=== PATIENT | male | born 1950 | race Caucasian/White ===

== ENCOUNTER 2018-10-24 09:53 | Emergency (ER) | payer MEDICARE ==
[2018-10-24 10:15] VITALS: BP 144/96
[2018-10-24 11:13] LABS: INR 1.6 (0.8-1.2); PT - PROTHROMBIN TIME 18.2 secs (9.9-12.6)
--- NOTE | 2018-10-24 11:35 | ED Physician Documentation ---
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 his 2st PMD appt with Dr Elizalde is 12/29/18 he come to ED for INR check no CP SOA or ext swelling Review of Systems Constitutional: denies: Fever Cardiac: denies: Chest pain / pressure Respiratory: denies: Dyspnea Musculoskeletal: denies: Extremity swelling Endocrine: reports: Easy bruising / bleeding PD PAST MEDICAL HISTORY - Past Medical History Past Medical History: Yes Cardiovascular: High cholesterol, Deep vein thrombosis, Pulmonary embolism Respiratory: None Neuro: TIA Endocrine/Autoimmune: None GI: GERD : None HEENT: Chronic vision loss Psych: None Musculoskeletal: None Derm: None - Past Surgical History Past Surgical History: Yes Ortho: Spine surgery - Present Medications Home Medications: Ambulatory Orders Medication Instructions Recorded Confirmed Aspirin 1 tab ORAL DAILY 10/24/18 10/24/18 Atorvastatin Calcium 1 tab ORAL DAILY 10/24/18 10/24/18 Calcium Carbonate [Calcium] 1 tab ORAL DAILY 10/24/18 10/24/18 Ferrous Sulfate 1 tab ORAL 10/24/18 Pantoprazole [Protonix] 1 tab ORAL DAILY 10/24/18 10/24/18 Warfarin Sodium [Coumadin] 6 mg ORAL DAILY 10/24/18 10/24/18 - Allergies Allergies/Adverse Reactions: Allergies Allergy/AdvReac Type Severity Reaction Status Date / Time No Known Drug Allergies Allergy Verified 10/24/18 10:15 - Social History Does the pt smoke?: Yes Smoking Status: Current every day smoker Does the pt drink ETOH?: Yes ETOH Use: Wine, Beer, Liquor Does the pt have substance abuse?: No - Immunizations Immunizations are current?: Yes - POLST Patient has POLST: No PD ED PE NORMAL - Vitals Vital signs reviewed: Yes - Cardiac Cardiac: RRR - Respiratory Respiratory: No respiratory distress Results - Vitals Vitals: Vital Signs - 24 hr 10/24/18 10:13 Temperature 36.4 C L Heart Rate 75 Respiratory 20 Rate Blood Pressure 144/96 H O2 Saturation 99 Oxygen O2 Source Room air - Labs Labs: Laboratory Tests 10/24/18 11:03 PT 18.2 H INR 1.6 H Departure - Departure Disposition: Home, Self Care Clinical Impression: Anticoagulation monitoring, INR range 2.5-3.5 Condition: Good Instructions: Coumadin Follow-Up: Roger Elizalde MD [Provider Admit Priv/Credential] - Comments: Your INR is a bit low today at 1.6. Coumadin is notoriously difficult to keep in the therapeutic range. It is easily affected by diet. We gave you an extra 2.5 mg today in the ER. Continue your usual dosage Get your INR rechecked again in another week Return if your develop signs of blood clots again
[2018-10-24] MEDS ORDERED: WARFARIN 5 MG TABLET PO STA (11:37)
[2018-10-24] MEDS ORDERED: WARFARIN 2.5 MG TABLET PO ONE (13:00)
== END 2018-10-24 12:14 | disposition home or self-care (01) ==
LOC: ED 09:53
DX: Z51.81 Encounter for therapeutic drug level monitoring (principal); Z86.718 Personal history of other venous thrombosis and embolism; Z79.01 Long term (current) use of anticoagulants; Z86.711 Personal history of pulmonary embolism; Z79.82 Long term (current) use of aspirin; F17.200 Nicotine dependence, unspecified, uncomplicated; E78.00 Pure hypercholesterolemia, unspecified; Z86.73 Personal history of transient ischemic attack (TIA), and cerebral infarction without residual deficits
CPT/HCPCS: 36415; 85610; 99282; 99283

== ENCOUNTER 2018-12-29 09:37 | Outpatient (CLI) | payer MEDICARE | END 2018-12-29 09:38 | disposition home or self-care (01) | LOC: LAB.F 09:37 | PROVIDERS: ATTEND Family Medicine | DX: I48.0 Paroxysmal atrial fibrillation (principal) | CPT/HCPCS: 85610 ==

== ENCOUNTER 2020-04-21 07:07 | Outpatient (CLI) | payer MEDICARE | END 2020-04-21 07:08 | disposition home or self-care (01) | LOC: LAB 07:07 | PROVIDERS: ATTEND Family Medicine | DX: I48.0 Paroxysmal atrial fibrillation (principal) | CPT/HCPCS: 85610 ==

== ENCOUNTER 2020-05-02 08:00 | Outpatient (CLI) | payer MEDICARE | END 2020-05-02 23:59 | disposition home or self-care (01) | LOC: LAB 08:00 | PROVIDERS: ATTEND Family Medicine | DX: I48.0 Paroxysmal atrial fibrillation (principal) | CPT/HCPCS: 85610 ==

== ENCOUNTER 2020-05-22 10:24 | Outpatient (CLI) | payer MEDICARE | END 2020-05-22 10:25 | disposition home or self-care (01) | LOC: LAB 10:24 | PROVIDERS: ATTEND Physician Assistant | DX: I48.0 Paroxysmal atrial fibrillation (principal) | CPT/HCPCS: 85610 ==

== ENCOUNTER 2020-05-22 10:38 | Outpatient (CLI) | payer MEDICARE ==
--- NOTE | 2020-05-22 11:00 | XRAY Report ---
PROCEDURE: Chest 2 View X-Ray INDICATIONS: Dyspnea TECHNIQUE: 2 view(s) of the chest. COMPARISON: None. FINDINGS: Surgical changes and devices: None. Lungs and pleura: No pleural effusions or pneumothorax. The lungs are hyperexpanded with flattened h emidiaphragms and increased volume of the retrosternal airspace. There is no focal consolidation. No plain radiographic evidence of lung mass. Mediastinum: Mediastinal contours are normal. Heart size is normal. Bones and chest wall: Age indeterminate height loss and wedging of the T9 vertebral body. Remaining v ertebral body heights maintained. IMPRESSION: 1.No acute cardiopulmonary process demonstrated. 2. Age-indeterminate wedging of the T9 vertebral body. Correlation for any point tenderness and jose david rison with any prior outside studies is recommended, to help exclude an acute component. Reviewed by: Otto Riggins MD on 05/22/2020 10:58 AM PDT Approved by: Otto Riggins MD on 05/22/2020 10:58 AM PDT Station ID: [id number]
== END 2020-05-22 10:39 | disposition home or self-care (01) ==
LOC: DI 10:38
PROVIDERS: ATTEND Nurse Practitioner Family
DX: M48.54XA Collapsed vertebra, not elsewhere classified, thoracic region, initial encounter for fracture (principal); I48.0 Paroxysmal atrial fibrillation
CPT/HCPCS: 71046; 85610

== ENCOUNTER 2020-11-07 12:19 | Outpatient (CLI) | payer MEDICARE ==
--- NOTE | 2020-11-07 16:25 | CT Report ---
PROCEDURE: Low Dose Lung Cancer Screen INDICATIONS: SCREENING FOR MALIGNANT NEOPLASM OF LUNG TECHNIQUE: Noncontrast low-dose 5 mm thick sections acquired from the pulmonary apices to the posterior costophr enic angles. 7 mm thick coronal and sagittal MIP reformats were then acquired. For radiation dose r eduction, the following was used: automated exposure control, adjustment of mA and/or kV according t o patient size. COMPARISON: None. FINDINGS: Image quality: Excellent. Lungs and pleura: There is no suspicious pulmonary nodule or mass. Moderate apical predominant emphy sematous changes, mostly paraseptal but also centrilobular. No focal consolidation. No significant pl eural abnormality. Mediastinum: Heart size is normal. No pericardial effusion. No mediastinal adenopathy by size crit eria. Thoracic aorta and central pulmonary arteries are normal in size. Esophagus is normal in jacob luis. Moderate size hiatal hernia. Bones and chest wall: No suspicious bony lesions. No vertebral body compression fractures. No axil marya or supraclavicular adenopathy by size criteria. Thyroid unremarkable. Abdomen: Visualized upper abdomen solid organs and bowel loops appear normal in the absence of contr ast. IMPRESSION: No suspicious pulmonary nodule or mass. Lung-RADS Category: 1 Recommendation: Continued annual low-dose screening CT of the chest is recommended. Other findings: Moderate--sized hiatal hernia. Reviewed by: Otto Riggins MD on 11/07/2020 4:24 PM PST Approved by: Otto Riggins MD on 11/07/2020 4:24 PM PST Station ID: [id number]
== END 2020-11-07 12:20 | disposition home or self-care (01) ==
LOC: DI 12:19
PROVIDERS: ATTEND Family Medicine
DX: Z12.2 Encounter for screening for malignant neoplasm of respiratory organs (principal); Z87.891 Personal history of nicotine dependence
CPT/HCPCS: G0297 ×2

== ENCOUNTER 2020-11-16 16:20 | Outpatient (CLI) | payer MEDICARE | END 2020-11-16 16:21 | disposition home or self-care (01) | LOC: LAB 16:20 | PROVIDERS: ATTEND Family Medicine | DX: I48.0 Paroxysmal atrial fibrillation (principal) | CPT/HCPCS: 36415; 85610; 85730 ==

== ENCOUNTER 2021-09-25 09:22 | Outpatient (CLI) | payer MEDICARE | END 2021-09-25 09:23 | disposition home or self-care (01) | LOC: LAB 09:22 | PROVIDERS: ATTEND Family Medicine | DX: I48.0 Paroxysmal atrial fibrillation (principal) | CPT/HCPCS: 36416; 85610 ==

== ENCOUNTER 2022-05-16 09:20 | Outpatient (CLI) | payer OTHER ==
--- NOTE | 2022-05-16 16:09 | CT Report ---
PROCEDURE: Low Dose Lung Cancer Screen INDICATIONS: SMOKER TECHNIQUE: Noncontrast low-dose images were acquired from the pulmonary apices to the posterior costophrenic ang les. Multiplanar MIP reformats were then acquired. For radiation dose reduction, the following was used: automated exposure control, adjustment of mA and/or kV according to patient size. COMPARISON: CT chest 11/07/2020 FINDINGS: Image quality: Excellent. Lungs and pleura: No effusions, consolidations or nodules. Mild emphysematous changes with pulmonary blebs are noted. Mediastinum: Heart size is normal. No pericardial effusion. No mediastinal adenopathy by size crit eria. Thoracic aorta and central pulmonary arteries are normal in size. Esophagus is normal in jacob luis. Prominent hiatal hernia. Bones and chest wall: No suspicious bony lesions. No vertebral body compression fractures. No axil marya or supraclavicular adenopathy by size criteria. The thyroid is normal in size and there are no incidental findings. Abdomen: Visualized upper abdomen solid organs and bowel loops appear normal in the absence of contr ast. IMPRESSION: No visualized nodules, consolidations or effusions. RADS category 1. Recommend annual CT screening. CLINICAL RECOMMENDATION STATEMENTS: In patients <35 years with an ITN detected on CT, MRI, or extrathyroidal ultrasound, the Committee re commends further evaluation with dedicated thyroid ultrasound if the nodule is "e1 cm and has no susp icious imaging features, and if the patient has normal life expectancy. In patients "e35 years with an ITN detected on CT, MRI, or extrathyroidal ultrasound, the Committee r ecommends further evaluation with dedicated thyroid ultrasound if the nodule is "e1.5 cm and has no s uspicious imaging features, and if the patient has normal life expectancy. (ACR, 2014) Reviewed by: Samantha Brantley MD on 05/16/2022 4:07 PM PDT Approved by: Samantha Brantley MD on 05/16/2022 4:07 PM PDT Station ID: [id number]
== END 2022-05-16 09:21 | disposition home or self-care (01) ==
LOC: DI 09:20
PROVIDERS: ATTEND Physician Assistant
DX: Z12.2 Encounter for screening for malignant neoplasm of respiratory organs (principal); F17.210 Nicotine dependence, cigarettes, uncomplicated

== ENCOUNTER 2022-08-28 19:29 | Outpatient (CLI) | payer OTHER | END 2022-08-28 19:30 | disposition critical access hospital (66) | LOC: EMS 19:29 | DX: R07.9 Chest pain, unspecified (principal); R10.84 Generalized abdominal pain | CPT/HCPCS: A0425; A0429 ==

== ENCOUNTER 2022-08-28 19:54 | Emergency (ER) | payer OTHER ==
[2022-08-28] MEDS ORDERED: MORPHINE 2 MG/ML CARPUJECT IVP STA (20:32)
--- NOTE | 2022-08-28 20:37 | ED Physician Documentation ---
History of Present Illness - Stated complaint Stated Complaint: ABD PX - Chief complaint Chief Complaint: Abd Pain - History obtained from History obtained from: Patient, EMS - Additonal information Additional information: -year-old male with medical history of high blood pressure, hyperlipidemia, DVT and PE on Coumadin, TIA, daily smoker (quit 1 month ago) primary care provider Dr. Chapman at [facility], presents with sudden onset tightening in the epigastrium and left side of the chest starting 1 hour prior to arrival after eating 3 chili dogs, worse with lying flat, associated with belching and nausea but no vomiting. Patient states he has mild shortness of breath. Per patient report he had a nuclear stress test about 5 years ago and he believes he also had a CCTA that was normal, done in [place]. Denies dizziness, new leg swelling. does state he works a physical job at [employer] 6 days a week. Review of Systems Ten Systems: 10 systems reviewed and negative Constitutional: denies: Fever, Chills Cardiac: reports: Chest pain / pressure. denies: Palpitations Respiratory: reports: Dyspnea. denies: Cough GI: reports: Abdominal Pain, Nausea. denies: Vomiting : denies: Dysuria PD PAST MEDICAL HISTORY - Past Medical History Past Medical History: Yes Cardiovascular: High cholesterol, Deep vein thrombosis, Pulmonary embolism Respiratory: None Neuro: TIA Endocrine/Autoimmune: None GI: GERD : None HEENT: Chronic vision loss Psych: None Musculoskeletal: None Derm: None - Past Surgical History Past Surgical History: Yes Ortho: Spine surgery - Present Medications Home Medications: Ambulatory Orders Medication Instructions Recorded Confirmed Aspirin 1 tab ORAL DAILY 10/24/18 10/24/18 Atorvastatin Calcium 1 tab ORAL DAILY 10/24/18 10/24/18 Calcium Carbonate [Calcium] 1 tab ORAL DAILY 10/24/18 10/24/18 Ferrous Sulfate 1 tab ORAL 10/24/18 Pantoprazole [Protonix] 1 tab ORAL DAILY 10/24/18 10/24/18 Warfarin Sodium [Coumadin] 6 mg ORAL DAILY 10/24/18 10/24/18 - Allergies Allergies/Adverse Reactions: Allergies Allergy/AdvReac Type Severity Reaction Status Date / Time No Known Drug Allergies Allergy Verified 10/24/18 10:15 - Social History Does the pt smoke?: Yes Smoking Status: Current every day smoker Does the pt drink ETOH?: Yes Does the pt have substance abuse?: No - Immunizations Immunizations are current?: Yes - POLST Patient has POLST: No PD ED PE NORMAL - Vitals Vital signs reviewed: Yes - General General: Alert and oriented X 3, No acute distress, Well developed/nourished - HEENT HEENT: Atraumatic, PERRL, EOMI, Moist mucous membranes, Pharynx benign - Neck Neck: Supple, no meningeal sign - Cardiac Cardiac: RRR - Respiratory Respiratory: No respiratory distress, Clear bilaterally - Abdomen Abdomen: Non tender, Non distended - Derm Derm: Normal color, Warm and dry - Extremities Extremities: No deformity - Neuro Neuro: Alert and oriented X 3, No motor deficit, No sensory deficit - Psych Psych: Normal mood, Normal affect Results - Vitals Vitals: Vital Signs - 24 hr 08/28/22 08/28/22 08/28/22 20:00 20:03 20:50 Temperature 36 C L 36.5 C Heart Rate 87 87 81 Respiratory 18 18 15 Rate Blood Pressure 124/84 H 124/84 H O2 Saturation 97 97 99 Oxygen O2 Source Room air - EKG (time done) 2039 Rate: Rate (enter#) (82) Rhythm: NSR [place]: Normal Intervals: Normal CT QRS: Normal Ischemia: Normal ST segments Computer interpretation: Agree with computer - Labs Labs: Laboratory Tests 08/28/22 08/28/22 08/28/22 20:40 20:40 20:40 WBC 11.3 H RBC 4.52 L Hgb 14.5 Hct 41.0 L MCV 90.7 MCH 32.1 H MCHC 35.4 RDW 13.0 Plt Count 224 MPV 9.4 Neut # (Auto) 8.6 H Lymph # (Auto) 1.5 Taylor # (Auto) 0.7 Eos # (Auto) 0.4 Baso # (Auto) 0.1 Absolute Nucleated RBC 0.00 Nucleated RBC % 0.0 PT 19.5 H INR 1.8 H D-Dimer < 200.0 L VBG pH VBG pCO2 VBG pO2 VBG HCO3 VBG Total CO2 VBG O2 Saturation VBG Base Excess Sodium 141 Potassium 3.7 Chloride 103 Carbon Dioxide 28 Anion Gap 10.0 BUN 17 Creatinine 0.8 Estimated GFR (MDRD) 96 Glucose 103 H Calcium 9.4 Total Bilirubin 0.9 AST 21 ALT 17 Alkaline Phosphatase 38 L Troponin I High Sens Total Protein 7.8 Albumin 4.5 Globulin 3.3 Albumin/Globulin Ratio 1.4 Lipase 42 08/28/22 08/28/22 20:40 20:52 WBC RBC Hgb Hct MCV MCH MCHC RDW Plt Count MPV Neut # (Auto) Lymph # (Auto) Taylor # (Auto) Eos # (Auto) Baso # (Auto) Absolute Nucleated RBC Nucleated RBC % PT INR D-Dimer VBG pH 7.376 VBG pCO2 49.4 VBG pO2 29.2 VBG HCO3 28.3 H VBG Total CO2 29.8 H VBG O2 Saturation 62.0 VBG Base Excess 2.2 H Sodium Potassium Chloride Carbon Dioxide Anion Gap BUN Creatinine Estimated GFR (MDRD) Glucose Calcium Total Bilirubin AST ALT Alkaline Phosphatase Troponin I High Sens 5.5 Total Protein Albumin Globulin Albumin/Globulin Ratio Lipase PD MEDICAL DECISION MAKING - ED course ED course: 71-year-old man presents with epigastric pain and left-sided chest pain radiating through to the doxycycline. Heart score 3 (2 risk factors, age greater than 65). Clinical presentation is most consistent with gerd related to his hiatal hernia. he does endorse good compliance with his coumadin therefore PE less likely of concern. will treat symptomatically, monitor and reevaluate. D-dimer negative. Patient feeling significantly better status post Pepcid. Counseled to modify his diet to avoid foods that could exacerbate his GERD. Patient will follow-up with his primary care provider. Return precautions given. Departure - Departure Disposition: 01 Home, Self Care Clinical Impression: Abdominal pain, Epigastric pain Condition: Good Instructions: GERD Comments: You are seen in the emergency department for evaluation of abdominal pain going up to the chest after eating 3 chili dogs. Your test did not show an emergent cause but you should follow-up with your primary care provider this week. Retur n to the emergency department you have any new or worsening symptoms or other concerns. Forms: Activity restrictions
[2022-08-28] MEDS ORDERED: FAMOTIDINE 20 MG/2 ML VIAL IVP STA (20:38)
[2022-08-28 20:48] LABS: BASOPHILS # (AUTO) 0.1 10^3/uL (0.0-0.1); BASOPHILS % (AUTO) 1.2 %; EOSINOPHILS # (AUTO) 0.4 10^3/uL (0.0-0.7); EOSINOPHILS % (AUTO) 3.4 %; HGB - HEMOGLOBIN 14.5 g/dL (14.0-18.0); LYMPHOCYTES # (AUTO) 1.5 10^3/uL (1.5-3.5); LYMPHOCYTES % (AUTO) 13.1 %; MEAN CORPUSCULAR HEMOGLOBIN 32.1 pg (27.0-31.0); MEAN CORPUSCULAR HGB CONC 35.4 g/dL (32.0-36.0); MEAN CORPUSCULAR VOLUME 90.7 fL (80.0-94.0); MEAN PLATELET VOLUME 9.4 fL (7.4-11.4); MONOCYTES # (AUTO) 0.7 10^3/uL (0.0-1.0); MONOCYTES % (AUTO) 5.8 %; NEUTROPHILS # (AUTO) 8.6 10^3/uL (1.5-6.6); NEUTROPHILS % (AUTO) 76.1 %; PLT - PLATELET COUNT 224 10^3/uL (130-450); RED BLOOD COUNT 4.52 10^6/uL (4.70-6.10); WHITE BLOOD COUNT 11.3 x10^3/uL (4.8-10.8)
[2022-08-28 20:55] LABS: INR 1.8 (0.8-1.2); PT - PROTHROMBIN TIME 19.5 secs (9.9-12.6)
[2022-08-28 20:59] LABS: VBG BASE EXCESS 2.2 mmol/L (-2 - +2); VBG HCO3 28.3 mmol/L (23-28); VBG PCO2 49.4 mmHg (41-51); VBG PH 7.376 (7.31-7.41); VBG PO2 29.2 mmHg (25-47); VBG TOTAL CO2 29.8 mmol/L (24-29)
[2022-08-28 21:02] LABS: D-DIMER < 200.0 ng/mL (200.0-255.0)
[2022-08-28 21:03] LABS: ALBUMIN 4.5 g/dL (3.2-5.5); ALBUMIN/GLOBULIN RATIO 1.4 (1.0-2.2); BILIRUBIN,TOTAL 0.9 mg/dL (0.2-1.0); CALCIUM 9.4 mg/dL (8.5-10.3); CREATININE 0.8 mg/dL (0.6-1.2); POTASSIUM 3.7 mmol/L (3.5-5.0); TOTAL PROTEIN 7.8 g/dL (6.7-8.2)
--- NOTE | 2022-08-28 21:23 | XRAY Report ---
PROCEDURE: Chest 1 View X-Ray INDICATIONS: Chest Pain TECHNIQUE: One view of the chest was acquired. COMPARISON: Chest x-ray 05/22/2020. Chest CT 05/16/2022. FINDINGS: Surgical changes and devices: None. Lungs and pleura: There is increased pulmonary vascular prominence suggestive of mild pulmonary michelle a. No pleural effusions or pneumothorax. Mediastinum: A large hiatal hernia is redemonstrated. Heart size is normal. Bones and chest wall: No suspicious bony lesions. Overlying soft tissues appear unremarkable. IMPRESSION: 1. Pulmonary vascular prominence suggestive of mild pulmonary edema. 2. Large hiatal hernia. Reviewed by: Cody Campos MD on 08/28/2022 9:21 PM PDT Approved by: Cody Campos MD on 08/28/2022 9:21 PM PDT Station ID: [id number]
[2022-08-28] MEDS ORDERED: PANTOPRAZOLE 40 MG VIAL IVP STA (21:42)
[2022-08-28 22:10] VITALS: BP 136/77
== END 2022-08-28 22:24 | disposition home or self-care (01) ==
LOC: EDUNIT# → ED 19:54
DX: R10.13 Epigastric pain (principal); K44.9 Diaphragmatic hernia without obstruction or gangrene; Z87.891 Personal history of nicotine dependence
CPT/HCPCS: 36415; 80053; 82803; 83690; 84484; 85025; 85379; 85610; 93005; 96374; 96375; 99282

== ENCOUNTER 2022-10-22 12:01 | Outpatient (CLI) | payer OTHER ==
[2022-10-22 12:43] LABS: INR 1.8 (0.8-1.2); PT - PROTHROMBIN TIME 19.4 secs (9.9-12.6)
== END 2022-10-22 12:02 | disposition home or self-care (01) ==
LOC: LAB 12:01
PROVIDERS: ATTEND Physician Assistant
DX: I48.0 Paroxysmal atrial fibrillation (principal)
CPT/HCPCS: 36415; 36416; 85610

== ENCOUNTER 2022-10-30 15:42 | Outpatient (CLI) | payer OTHER | END 2022-10-30 15:43 | disposition home or self-care (01) | LOC: LAB 15:42 | PROVIDERS: ATTEND Physician Assistant | DX: I48.0 Paroxysmal atrial fibrillation (principal) | CPT/HCPCS: 36416; 85610 ==

== ENCOUNTER 2022-11-07 14:28 | Outpatient (CLI) | payer OTHER | END 2022-11-07 14:29 | disposition home or self-care (01) | LOC: LAB 14:28 | PROVIDERS: ATTEND Physician Assistant | DX: I48.0 Paroxysmal atrial fibrillation (principal) | CPT/HCPCS: 36416; 85610 ==

== ENCOUNTER 2023-02-11 11:56 | Outpatient (CLI) | payer OTHER ==
[2023-02-11 12:24] LABS: INR 1.2 (0.8-1.2); PT - PROTHROMBIN TIME 13.3 secs (9.9-12.6)
== END 2023-02-11 11:57 | disposition home or self-care (01) ==
LOC: LAB 11:56
PROVIDERS: ATTEND Physician Assistant
DX: I48.0 Paroxysmal atrial fibrillation (principal)
CPT/HCPCS: 36415; 85610

== ENCOUNTER 2023-03-06 13:48 | Outpatient (CLI) | payer OTHER ==
[2023-03-06 14:06] LABS: INR 2.7 (0.8-1.2)
== END 2023-03-06 13:49 | disposition home or self-care (01) ==
LOC: LAB 13:48
PROVIDERS: ATTEND Physician Assistant
DX: I48.0 Paroxysmal atrial fibrillation (principal)
CPT/HCPCS: 36415; 85610

== ENCOUNTER 2023-08-08 08:56 | Outpatient (CLI) | payer OTHER ==
--- NOTE | 2023-08-08 13:14 | CT Report ---
PROCEDURE: Low Dose Lung Cancer Screen INDICATIONS: EX SMOKER TECHNIQUE: A CT scan of the chest was performed. Intravenous contrast media was not administered. Images were re corded and evaluated at appropriate window settings. Reformats: axial MIP of the chest, coronal and s agittal. For radiation dose reduction, the following was used: automated exposure control, adjustment of mA and/or kV according to patient size. COMPARISON: 05/16/2022. FINDINGS: Prior cancer history: Unsure. Lungs and pleura: Mild-moderate emphysema. No pleural effusions. No pneumothorax. No suspicious pulm onary nodules which require follow up. Mediastinum: No pericardial effusion. Multivessel coronary artery calcifications and/or stents. Lar ge paraesophageal hernia as before. Chest wall and lower neck: No axillary or supraclavicular adenopathy by size. Bones: No aggressive osseous abnormality. Upper Abdomen: Unremarkable. IMPRESSION: Lung RAD: 1 - Negative. Recommendation: Continue annual screening in 12 Months with LDCT Non-Lung Significant Findings: Large paraesophageal hernia. Reviewed by: Slava Carballo MD on 08/08/2023 1:13 PM PDT Approved by: Slava Carballo MD on 08/08/2023 1:13 PM PDT Station ID: [id number]
== END 2023-08-08 08:57 | disposition home or self-care (01) ==
LOC: DI 08:56
PROVIDERS: ATTEND Nurse Practitioner Family
DX: Z12.2 Encounter for screening for malignant neoplasm of respiratory organs (principal); Z87.891 Personal history of nicotine dependence; K44.9 Diaphragmatic hernia without obstruction or gangrene